=== PATIENT | male | born 1955 | race Caucasian/White ===

== ENCOUNTER 2019-03-18 11:06 | Day surgery (SDC) | payer OTHER ==
[2019-03-18] MEDS ORDERED: BSS PLUS 500 ML + VANCO 10MG, GENT 4 MG, EPI 0.25 MG IRR (12:30)
[2019-03-18] MEDS: TROPICAMIDE 1% 15 ML OPH OPER (12:55)
[2019-03-18] MEDS: PHENYLephrine 2.5% 15 ML OPH OPER (12:55)
[2019-03-18] MEDS: CYCLOPENTOLATE 1% 2 ML OPH OPER (12:55)
[2019-03-18] MEDS: MOXIFLOXACIN 0.5% 3 ML OPH OPER (12:56)
[2019-03-18] MEDS: PROPARACAINE 0.5% 15 ML OPH OPER (13:01)
[2019-03-18] MEDS ORDERED: NA HYALURONATE/CHONDROITIN 0.5 ML SYG (14:18)
[2019-03-18] MEDS: LIDOCAINE 1% (MPF) 10 ML INJ (14:18)
[2019-03-18] MEDS ORDERED: MIDAZOLAM 1 MG/ML 2 ML INJ (14:36)
[2019-03-18] MEDS ORDERED: FENTAnyl 50 MCG/ML VIAL (14:36)
[2019-03-18] MEDS ORDERED: hydrALAzine 20 MG INJ (15:36)
[2019-03-18] MEDS ORDERED: OXYCODONE/ACETAMINOPHEN (5/325) TAB PO (16:30)
[2019-03-18] MEDS ORDERED: FENTAnyl 50 MCG/ML VIAL IV (16:30)
[2019-03-18] MEDS ORDERED: HYDROmorphONE 1 MG/5 ML IV SYRINGE IV (16:30)
[2019-03-18] MEDS ORDERED: ONDANSETRON 4 MG INJ IV (16:30)
== END 2019-03-18 16:46 | disposition home or self-care (01) ==
LOC: SDS 11:06
DX: H26.8 Other specified cataract (principal); J45.909 Unspecified asthma, uncomplicated
CPT/HCPCS: 66984

== ENCOUNTER 2019-04-29 06:34 | Day surgery (SDC) | payer OTHER ==
[2019-04-29] MEDS: TROPICAMIDE 1% 15 ML OPH OPER (08:02)
[2019-04-29] MEDS: PHENYLephrine 2.5% 15 ML OPH OPER (08:03)
[2019-04-29] MEDS: MOXIFLOXACIN 0.5% 3 ML OPH OPER (08:03)
[2019-04-29] MEDS: CYCLOPENTOLATE 1% 2 ML OPH OPER (08:04)
[2019-04-29] MEDS: PROPARACAINE 0.5% 15 ML OPH OPER (08:05)
[2019-04-29] MEDS ORDERED: BSS PLUS 500 ML + VANCO 10MG, GENT 4 MG, EPI 0.25 MG IRR (08:30)
[2019-04-29] MEDS ORDERED: ONDANSETRON 4 MG INJ IV (09:00)
[2019-04-29] MEDS ORDERED: hydrALAzine 20 MG INJ IV (09:00)
[2019-04-29] MEDS ORDERED: ALBUTEROL 0.083% (NEB) 2.5 MG/3 ML AMP HHN (09:00)
[2019-04-29] MEDS ORDERED: LABETALOL HCL 20MG INJ IV (09:00)
[2019-04-29] MEDS ORDERED: MEPERIDINE 25 MG INJ IV (09:00)
[2019-04-29] MEDS ORDERED: OXYCODONE/ACETAMINOPHEN (5/325) TAB PO ×2 (09:00)
[2019-04-29] MEDS ORDERED: FENTAnyl 50 MCG/ML VIAL IV ×3 (09:00)
[2019-04-29] MEDS ORDERED: MIDAZOLAM 1 MG/ML 2 ML INJ (10:08)
[2019-04-29] MEDS: TETRACAINE 0.5% 4 ML OPH RIGHT EYE (10:10)
[2019-04-29] MEDS: LIDOCAINE 1% (MPF) 5 ML VIAL INJ (10:10)
[2019-04-29] MEDS ORDERED: FENTAnyl 50 MCG/ML VIAL (10:15)
[2019-04-29] MEDS ORDERED: ONDANSETRON 4 MG INJ (10:15)
[2019-04-29] MEDS ORDERED: hydrALAzine 20 MG INJ (10:16)
== END 2019-04-29 12:25 | disposition home or self-care (01) ==
LOC: SDS 06:34
DX: H26.9 Unspecified cataract (principal); E11.9 Type 2 diabetes mellitus without complications; I10 Essential (primary) hypertension
CPT/HCPCS: 66984